=== PATIENT | male | born 1990 | race African-American/Black ===

== ENCOUNTER 2020-10-27 08:47 | Emergency (ER) | payer OTHER, SELFPAY ==
--- NOTE | ~2020-10-27 | XR_ITS ---
EXAMINATION: XR ribs LT 2V w CXR 2V INDICATION: Left-sided chest pain TECHNIQUE: PA and lateral views of the chest and 3 views of the left ribs were obtained. COMPARISON: None. FINDINGS: The lungs are free of acute opacities. There is no pleural effusion or pneumothorax. The ca rdiomediastinal silhouette is normal. The visualized bones and soft tissues are unremarkable. No disp laced rib fracture is identified. IMPRESSION: 1. No acute cardiopulmonary abnormality or evidence of displaced rib fracture. Reviewed, dictated and finalized at location A. PHARMACY TECHNICIAN
[2020-10-27 08:47] VITALS: BP 160/110; PULSE 79; RESP 17; TEMP 36.9; O2SAT 100
[2020-10-27 08:51] VITALS: PULSE 71
--- NOTE | 2020-10-27 08:53 | ECG_ITS ---
Measurements Intervals [place] Rate: 72 P: 63 NE: 167 QRS: 47 QRSD: 100 T: 29 QT: 402 QTc: 441 Interpretive Statements SINUS RHYTHM WITH SINUS ARRHYTHMIA DELAYED PRECORDIAL R/S TRANSITION BORDERLINE ECG Electronically Signed On 10-27-2020 9:13:43 OPEN TENTER OPERATOR by Herbie Queen D.O.
[2020-10-27 10:22] VITALS: BP 161/92; PULSE 74; RESP 12; O2SAT 100
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
[2020-10-27 11:07] VITALS: BP 173/99; PULSE 70; RESP 20; O2SAT 99
== END 2020-10-27 11:09 | disposition home or self-care (01) ==
PROVIDERS: Emergency Provider Emergency Medicine
DX: R07.89 Other chest pain (principal); R94.31 Abnormal electrocardiogram [ECG] [EKG]; Y09 Assault by unspecified means
CPT/HCPCS: 71046; 71100; 93005; 99283